=== PATIENT | male | born 2000 | race Caucasian/White ===

== ENCOUNTER 2023-09-14 09:20 | Outpatient (AMB) | payer OTHER, SELFPAY ==
--- NOTE | 2023-09-14 09:27 | MHC.PC.OV ---
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 Accompanied by: Mother Allergies nickel Allergy (Mild, Verified 09/14/23 09:38) Unknown Seasonal Allergies Allergy (Mild, Verified 09/14/23 09:38) Unknown nickel and metal Allergy (Unknown, Uncoded 09/14/23 09:38) Unknown Medication List - Last Reconciled 09/14/23 by Hyacinth Brian MD hydroxyzine HCl 25 mg PO TID PRN sertraline 25 mg PO DAILY Tobacco use date assessed: 09/14/23 Dental Screening Dental Screen Date: 09/14/23 Did you have a dental visit in the last 12 months?: No Did you have a dental problem in the last 6 months where you did not have access to dental care?: No Was dental information given to patient?: Patient has dentist HPI HPI Comments History of Present Illness Details This is a 23-year-old male with moderate major depression and anxiety that comes today accompanied by mother for follow-up on his conditions. Doing well with sertraline. To not have any counselor or psychiatrist. He did had elevated blood pressure today and blood pressure will be recheck in 3 weeks by nurse navigator. No chest pain or shortness of breath. [facility] Surgical History No pertinent past surgical history Family History Father Mental health disorder Maternal Grandfather Heart attack, Onset Age: 60 Social History Housing: House Alcohol intake: never Patient Tobacco Use Status: Tobacco use Unknown Tobacco use type: Smokeless Tobacco e-Cigarette/Vaping Use: Currently Using Second Hand Smoke Exposure: No service: No Current occupational status: employed Current occupation: Residential work Current occupational exposures/hazards: No Cognitive needs: No Hearing needs: No Vision needs: Yes Questionnaire PHQ-9 Over the last 2 weeks, how often have you been bothered by any of the following problems? 1. Little interest or pleasure in doing things: not at all 2. Feeling down, depressed, or hopeless: not at all 3. Trouble falling or staying asleep, or sleeping too much: several days 4. Feeling tired or having little energy: several days 5. Poor appetite or overeating: not at all 6. Feeling bad about yourself - or that you are a failure or have let yourself or your family down: not at all 7. Trouble concentrating on things, such as reading the newspaper or watching television: several days 8. Moving or speaking so slowly that other people could have noticed. Or the opposite - being so fidgety or restless that you have been moving around a lot more than usual: more than half the days 9. Thoughts that you would be better off or of hurting yourself in some way: not at all Total score: 5 Source: Developed by Drs. Matthieu Ruffin, Crys Alex, Giacomo Tejeda and colleagues, with an educational alina from [employer]. Thrive Questionnaire Date Thrive assessed: 09/14/23 I am a: Patient What is your living situation today?: I have a steady place to live Within the past 12 months, did the food you bought not last and you didn't have the money to get more?: Never true Within the past 12 months, did you worry whether your food would run out before you got money to buy more?: Never true Do you have trouble paying for medicines?: No Do you have trouble getting transportation to medical appointments?: No Do you have trouble paying your heating and electricity bill?: No Do you have trouble taking care of your child, family member or friend?: No Do you have trouble with day-to-day activities such as bathing, preparing meals, shopping, managing finances, etc.?: No Are you currently unemployed and looking for a job?: No Are you interested in more education?: No Please select the resources that you would like help with: None Currently or been in a relationship where the following occur: no concerns reported AUDIT C Alcohol Use Questionnaire (AUDIT-C) 1. How often do you have a drink containing alcohol?: Never Total Score: 0 MELBA-7 AMB Questionnaire MELBA-7 Date MELBA - 7 assessed: 09/14/23 Feeling nervous, anxious, or on edge: 1 = Several days Not being able to stop or control worryin = Not at all Worrying too much about different things: 0 = Not at all Trouble relaxin = Not at all Being so restless that it is hard to sit still: 0 = Not at all Becoming easily annoyed or irritable: 1 = Several days Feeling afraid as if something awful might happen: 0 = Not at all Total MELBA-7 score (0-4 normal; 5-9 mild; 10-14 moderate; 15-21 severe): 2 Source: Developed by Drs. Matthieu Ruffin, Crys Alex, Giacomo Tejeda and colleagues, with an educational alina from [employer]. MELBA-7 Assessment Billing MELBA-7 Assessment Tool: MELBA-7 Assessment 30763 Review of Systems Const All systems reviewed & are unremarkable except as noted in HPI and below Eyes Reports no additional complaints, Denies change in vision and Denies other visual disturbances Card Denies chest pain at rest, Denies chest pain with activity, Denies edema, Denies irregular heart rhythm, Denies claudication, Denies dyspnea, Denies dyspnea on exertion, Denies orthopnea, Denies paroxysmal nocturnal dyspnea and Denies slow heart rate Resp Denies cough, Denies dyspnea and Denies dyspnea on exertion GI Denies abdominal pain, Denies change in bowel habits, Denies excessive flatus, Denies nausea and Denies vomiting Denies urinary hesitancy, Denies urinary incontinence and Denies urinary urgency Musc Denies abnormal gait, Denies atrophy, Denies deformity and Denies limited range of motion Skin/Breast Denies bleeding lesions, Denies changing lesions and Denies rash Neuro Denies abnormal gait, Denies behavioral changes and Denies lack of coordination Psych Denies behavioral changes Physical exam (Primary Care) Vital Signs: Last Vital Signs BP 145/90 H 09/14/23 09:28 BMI result Body Mass Index 36.2 Tobacco/Smoking Status: Tobacco use Status Tobacco use date assessed 09/14/23 09/14/23 09:33 Patient Tobacco Use Status Tobacco use Unknown 09/14/23 09:33 Tobacco use type Smokeless Tobacco 09/14/23 09:33 e-Cigarette/Vaping Use Currently Using 09/14/23 09:33 PHQ-9: PHQ-9 Score PHQ-9: Total score 5 09/14/23 09:40 Thrive Assessment: Date of Thrive Assessment Date Thrive assessed 09/14/23 09/14/23 09:33 Currently or been in a relationship where the following occur: no concerns reported Eyes General: appearance normal, both eyes and all related structures Eyelids: Yes eyelids normal Conjunctivae: conjunctivae normal Neck Neck: Yes normal visual inspection and Yes supple Resp Effort & Inspection: normal respiratory effort Auscultation: clear to auscultation bilaterally Cardio Jugular venous distension: no JVD Rate: regular rate Rhythm: regular rhythm Heart sounds: S1 normal heart sound present and S2 normal heart sound present Extrem General: Yes full ROM Psych Appearance: grossly normal Office Procedures Flu Questionnaire Does the patient have a severe egg allergy?: No Immunizations flu vacc [id number] 6mos up(PF) 60 mcg(15 mcgx4)/0.5 mL IM syringe Performing Provider: Hyacinth Brian MD [facility] Documented (not given) by: RITA Euceda on 09/14/23 09:35 Reason Not Given: Patient Refused Assessment and Plan Assessment & Plan (1) Moderate major depression, single episode: Code(s): F32.1 - Major depressive disorder, single episode, moderate Plan: Continue sertraline. (2) Generalized anxiety disorder: Code(s): F41.1 - Generalized anxiety disorder Plan: Continue sertraline. (3) Elevated blood pressure reading without diagnosis of hypertension: Code(s): R03.0 - Elevated blood-pressure reading, without diagnosis of hypertension Plan: Repeat blood pressure in 3 weeks with nurse navigator. Orders: Orders Influenza [id number] Immunization Today Z23 - Encounter for immunization Medications: Changed From sertraline 25 mg PO DAILY 30 tabs 6RF F32.A - Depression, unspecified, F41.1 - Generalized anxiety disorder To sertraline 25 mg PO DAILY 90 days 90 tabs 1RF F32.A - Depression, unspecified, F41.1 - Generalized anxiety disorder Coding Level of Care Code Est Pt Level 3 (20897) Diagnoses Moderate major depression, single episode F32.1 Generalized anxiety disorder F41.1 Elevated blood pressure reading without diagnosis of hypertension R03.0 Additional Codes MELBA-7 Assessment Billing - MELBA-7 Assessment Tool: MELBA-7 Assessment 86111 ([id number]) Time Spent (min) 18
[2023-09-14 09:28] VITALS: BP 145/90; BMI 36.2
== END 2023-09-14 09:45 | disposition home or self-care (01) ==
PROVIDERS: PCP Physician Assistant; Visit Provider Internal Medicine
DX: F32.1 Major depressive disorder, single episode, moderate (principal); F41.1 Generalized anxiety disorder; R03.0 Elevated blood-pressure reading, without diagnosis of hypertension
CPT/HCPCS: 96127; 99213